=== PATIENT | female | born 1955 | race Caucasian/White ===

== ENCOUNTER 2016-09-28 10:52 | Day surgery (SDC) | payer MEDICARE ==
[2016-10-19] MEDS ORDERED: ATV1 PO (10:48)
[2016-10-19] MEDS ORDERED: ANASPAZ0.125 MG PO (10:50)
[2016-10-19] MEDS ORDERED: T3 PO (10:50)
[2016-10-19] MEDS ORDERED: SEROQUEL25 PO (10:51)
[2016-10-19] MEDS ORDERED: PRILOSEC40 MG PO (10:52)
[2016-10-19] MEDS ORDERED: CYMBALTA30 PO (10:52)
[2016-10-19] MEDS ORDERED: MOBIC7.5 PO (10:53)
[2016-10-19] MEDS ORDERED: BACLOFEN20 MG PO (10:53)
[2016-10-19] MEDS ORDERED: NEUR400 PO (10:54)
[2016-10-19] MEDS ORDERED: COREG6 PO (10:54)
[2016-10-19] MEDS ORDERED: LEVOTHYROXIN50 MCG PO (10:54)
[2016-10-19] MEDS ORDERED: RANITIDINE300 MG PO (10:55)
[2016-10-19] MEDS ORDERED: SYSTANE ULTR OPH (10:55)
[2016-10-19] MEDS ORDERED: SINGULAIR1 PO (10:55)
[2016-10-19] MEDS ORDERED: ALBUTEROL0.083 % INH (10:56)
[2016-10-19] MEDS ORDERED: PULRESP.25 INH (10:57)
[2016-10-19] MEDS ORDERED: PERFOROM INH (10:58)
[2016-10-19] MEDS ORDERED: P5 PO (11:03)
[2016-10-19] MEDS ORDERED: [UNRECOGNIZED DRUG - REMARK] (11:05)
[2016-10-19] MEDS ORDERED: JEVITY (11:33)
== END 2016-09-28 23:59 | disposition home or self-care (01) ==
LOC: DMU 10:52
PROVIDERS: Internal Medicine Gastroenterology
PROC: 0D20XUZ Change Feeding Device in Upper Intestinal Tract, External Approach (ICD-10-PCS; principal; 2016-09-28 12:00)
DX: Z43.1 Encounter for attention to gastrostomy (principal); E46 Unspecified protein-calorie malnutrition; J45.909 Unspecified asthma, uncomplicated; Z79.899 Other long term (current) drug therapy; Z88.0 Allergy status to penicillin; Z88.2 Allergy status to sulfonamides; Z88.8 Allergy status to other drugs, medicaments and biological substances; Z88.1 Allergy status to other antibiotic agents
CPT/HCPCS: 49465

== ENCOUNTER 2016-10-20 10:53 | Day surgery (SDC) | payer MEDICARE ==
--- NOTE | ~2016-10-20 | OP ---
Record Of Operation [facility] [address] [id number] NAME: MARLENY POWERS : 53 STATUS : [facility] UNIT#: [id number] AGE: 61 ADM/REG DATE : 10/20/16 MR#: [id number] REPORT SERV DATE: 12/02/16 DICTATED BY: ANTHONY ORTEGA DATE: 12/01/16 REPORT STATUS : Draft TRANSCRIBED BY: MODL DATE: 12/01/16 DATE OF PROCEDURE: 10/20/2016 INDICATION FOR PROCEDURE: The patient's feeding tube had clogged and needed to be removed and replaced. After obtaining informed consent, balloon on the PEG tube that was in the patient was deflated. Her PEG tube was removed. Then, a new 24-[place] replacement PEG tube was placed through the original opening, and balloon was inflated with 10 mL of sterile water, and the patient then went for x-ray, and it did show that the feeding tube was in the stomach. The patient did well with the procedure, and she will go home on her usual medications and her usual diet and her usual tube feedings. EDWINA/ZURI Anthony Ortega M.D. / [id number] CC: Tisha Pitt M.D.
[~2016-10-20 10:53] MED LIST: ALBUTEROL0.083 % INH; ANASPAZ0.125 MG PO; ATV1 PO; BACLOFEN20 MG PO; COREG6 PO; CYMBALTA30 PO; JEVITY; LEVOTHYROXIN50 MCG PO; MOBIC7.5 PO; NEUR400 PO; P5 PO; PERFOROM INH; PRILOSEC40 MG PO; PULRESP.25 INH; RANITIDINE300 MG PO; SEROQUEL25 PO; SINGULAIR1 PO; SYSTANE ULTR OPH; T3 PO; [UNRECOGNIZED DRUG - REMARK]
== END 2016-10-20 23:59 | disposition home or self-care (01) ==
LOC: DMU 10:53
PROVIDERS: Internal Medicine Gastroenterology
PROC: 0D20XUZ Change Feeding Device in Upper Intestinal Tract, External Approach (ICD-10-PCS; principal; 2016-10-20 12:00)
DX: Z46.59 Encounter for fitting and adjustment of other gastrointestinal appliance and device (principal); Z88.0 Allergy status to penicillin; Z88.8 Allergy status to other drugs, medicaments and biological substances; Z88.1 Allergy status to other antibiotic agents; Z88.6 Allergy status to analgesic agent; Z79.2 Long term (current) use of antibiotics; Z79.52 Long term (current) use of systemic steroids
CPT/HCPCS: 74240